=== PATIENT | male | born 1960 | race Caucasian/White ===

== ENCOUNTER 2017-03-06 14:59 | Inpatient (IN) ==
[2017-03-06 17:29] LABS: MANUAL DIFF NEEDED? NO
[2017-03-06 17:36] LABS: BASO% 0.3 % (0.0-0.8); EOS# 0.01 X1000 (0.0-0.7); EOS% 0.3 % (0.0-10.0); HEMATOCRIT 40.6 % (42.0-52.0); HEMOGLOBIN 13.7 g/dL (14.0-18.0); LYMPH# 0.55 X1000 (1.2-3.4); LYMPH% 16.6 % (20.5-51.1); MCHC 33.7 g/dL (33-37); MONO# 0.18 X1000 (0.11-0.59); MONO% 5.4 % (1.7-9.3); NEUT% 77.4 % (42.2-75.2); PLT 115 X1000 (130-400); RBC 4.56 XMIL (4.7-6.1)
[2017-03-06] MEDS: NS 1,000 ML IV SCH (17:49)
[2017-03-06] MEDS: NORCO-5 PO PRN (17:49)
[2017-03-06 17:52] LABS: ALBUMIN 3.5 g/dL (3.5-5.0); POTASSIUM 4.9 mmol/L (3.5-5.1); TOTAL BILIRUBIN 0.32 mg/dL (0.20-1.00); TOTAL PROTEIN 6.6 g/dL (6.3-8.3)
[2017-03-06] MEDS ORDERED: SODIUM CHLORIDE 0.9% INJ SCH (18:30)
[2017-03-06] MEDS: PROTONIX IV SCH (18:54)
[2017-03-06] MEDS: LOVENOX SUBQ SCH (18:54)
[2017-03-06] MEDS: ZYVOX 600 MG/D5W 600 MG/300 ML IVPB IV SCH (18:54)
[2017-03-06] MEDS: SOLU-MEDROL IV SCH (18:54)
[2017-03-07] MEDS: NORCO-5 PO PRN ×2 (00:27→06:29)
[2017-03-07 06:13] LABS: MANUAL DIFF NEEDED? NO
[2017-03-07 06:16] LABS: BASO% 0.4 % (0.0-0.8); EOS# 0.01 X1000 (0.0-0.7); EOS% 0.4 % (0.0-10.0); HEMATOCRIT 39.5 % (42.0-52.0); HEMOGLOBIN 13.4 g/dL (14.0-18.0); LYMPH# 0.82 X1000 (1.2-3.4); LYMPH% 34.9 % (20.5-51.1); MCHC 33.9 g/dL (33-37); MCV 88.4 FL (81-99); MONO# 0.19 X1000 (0.11-0.59); MONO% 8.1 % (1.7-9.3); MPV 10.4 FL (7.4-10.4); NEUT% 56.2 % (42.2-75.2); PLT 130 X1000 (130-400); RBC 4.47 XMIL (4.7-6.1)
[2017-03-07 06:21] LABS: INR 1.16; PROTIME 12.3 Seconds (9.2-11.7)
[2017-03-07] MEDS: SOLU-MEDROL IV SCH ×3 (06:30→17:42)
[2017-03-07] MEDS: NS 1,000 ML IV SCH ×2 (06:31→17:39)
[2017-03-07] MEDS: ZYVOX 600 MG/D5W 600 MG/300 ML IVPB IV SCH ×2 (06:31→17:42)
[2017-03-07 06:32] LABS: AGAP 13; BUN 19 mg/dL (8-22); CALCIUM 7.8 mg/dL (8.8-10.2); CHLORIDE 93 mmol/L (98-107); COSMO 255; MAGNESIUM 1.7 mg/dL (1.5-2.7); POTASSIUM 4.5 mmol/L (3.5-5.1); SODIUM 125 mmol/L (136-145); TCO2 19 mmol/L (25-35)
[2017-03-07 06:39] LABS: CK PROFILE 431 U/L (24-204)
[2017-03-07 07:07] LABS: CK INDEX 1.7 (0.0-2.5); CK-MB 7.27 ng/mL (0.0-5.0)
--- NOTE | 2017-03-07 07:22 | Diag Imaging Result Doc PS360 ---
EXAM: CHEST-2 VIEWS HISTORY: pneumonia COMPARISON: None. FINDINGS: The lungs are well expanded. The heart is not enlarged. The vessels are not distended. There are no infiltrates. No pleural effusions. IMPRESSION: No acute abnormality. Electronically signed by Hank Ryan 03/07/2017 7:19 AM
--- NOTE | 2017-03-07 08:25 | HISTORY AND PHYSICAL ---
CHIEF COMPLAINT: Diffuse rash, low blood pressure. Diffuse body pains. Low-grade fever. Cough. HISTORY OF PRESENT ILLNESS: He is a 56-year-old white male who was evaluated in my office a week ago for left olecranon bursitis with localized cellulitis. Wound cultures grew staph infection. He was sent home on Bactrim. In the meantime, he was seen in the walk-in Clinic on Saturday with fever, body pains. The blood workup revealed mild azotemia. He was advised to take a lot of water. He came back yesterday. He is feeling cough, low-grade fever and chest x-ray showed questionable infiltrate in the right lower lobe. He was advised to start on Levaquin. After taking Levaquin, he started having dizziness, rash, low blood pressure. In my office his blood pressure was 90/60, diffuse rash presumed to be reaction to the Levaquin or Bactrim. He has been admitted to the hospital for hyponatremia and dehydration, azotemia, allergic rash probable from the Levaquin and recent staph infection from the left elbow olecranon bursitis. He also has diffuse body pains. As a result, a hospital admission was warranted. PAST MEDICAL HISTORY: History of legionnaires disease in 2008. BPH with elevated PSA, olecranon bursitis, ischemic cardiomyopathy, right coronary artery 50-60% lesion, hyperlipidemia, unable to tolerate statins, nasal polyposis, deviated nasal septum. Fracture of the biceps tendon in the right side. History of DVT in the right leg while he was hospitalized for pneumonia in 2008. PAST SURGICAL HISTORY: Sinus surgery. MEDICATIONS: Coreg 3.125 p.o. b.i.d., Flomax 0.4 mg daily, terazosin discontinued. Recently he was given Bactrim, Levaquin, lisinopril 10 mg daily, diclofenac 50 mg p.o. t.i.d. ALLERGIES: Lipitor, metoprolol impotence, Hytrin chest pains. SOCIAL HISTORY: , 2 children. Devi. Lives in [place]. Smoking half a pack a day for last 20 years. No alcohol. FAMILY HISTORY: Father of abdominal aortic aneurysm at 88. Mom of stroke at 70. HEALTH MAINTENANCE: Flu vaccine in 2015, pneumococcal vaccine 2010, last prostate exam October 2016 as well as PSA. Colonoscopy refused. REVIEW OF SYSTEMS: HEENT: Slight dizziness. No headache. No vision problem. No earache. No sore throat. Neck: No goiter. No lymphadenopathy. No bruit. Cardiopulmonary: No chest pain, shortness of breath, PND, orthopnea or cough. Left elbow swelling resolving. GI: No nausea, vomiting, abdominal cramps, diarrhea. Extremities: No swelling of feet. Diffuse body pains. Integument: Diffuse rash all over the body, mostly on the face and back. Musculoskeletal: Chronic back pain. Neurologic: No focal symptoms or weakness. PHYSICAL EXAMINATION: VITAL SIGNS: Afebrile, blood pressure in my office was standing 70/42, on room air 100%. HEENT: Atraumatic, normocephalic. Pupils equal, reactive to light. TMs are normal. Nose and throat within normal limits. NECK: Supple. No lymphadenopathy. CHEST: Crackles in the right base. HEART: Sounds are regular. ABDOMEN: Belly is soft, nontender. Good bowel sounds. No masses palpable. No peripheral edema, cyanosis, clubbing. NEUROLOGIC: Nonfocal. SKIN: Has a diffuse rash consistent with allergic rash. INVESTIGATIONS: White cell count 3.2, hematocrit 40, platelets 115,000. Sodium 137, potassium 4.9, chloride 92, BUN 23, creatinine 1.4, potassium 8. AST ALT slightly high. ASSESSMENT AND PLAN: 1. A 56-year-old white gentleman, admitted to the hospital with a rash, hypotension after Levaquin, dehydration, azotemia, hyponatremia. Plan is IV fluids. Discontinue Bactrim and Levaquin. 2. Left olecranon bursitis. Staph aureus. Follow up on culture and sensitivity from [facility]. We will start on IV Zyvox. 3. Allergic rash. IV steroids. 4. Previous history of deep venous thrombosis. Continue on Lovenox. 5. Gastrointestinal prophylaxis with Protonix. 6. Diarrhea. Follow up on stool samples to rule out C. difficile colitis. Probiotics. 7. Diffuse body pains. We will also check the creatinine kinase and aldolase. 8. Coronary artery disease with right coronary artery lesion under the care of fire sprinkler fitter in [place] and currently on aspirin, Coreg and lisinopril. We will hold the blood pressure medications. 9. Elevated prostate-specific antigen. Follow up on PCA3 test is negative. He is going to repeat the prostate-specific antigen as well as 4K score tests in the next month. Discussed with the family and follow up. cc: Juan Mckeon MD
[2017-03-07] MEDS: NUBAIN IV PRN ×2 (10:45→17:43)
--- NOTE | 2017-03-07 12:01 | Diag Imaging Result Doc PS360 ---
MRI LUMBAR SPINE W/WO CONTRAST - 03/07/2017 INDICATION: Back pain COMPARISON: None FINDINGS: Alignment is anatomic. There is Modic type I degenerative marrow edema at L5-S1. There is also severe narrowing of this disc and vacuum disc phenomenon. The conus is seen at T12-L1 and appears normal. There are several chronic endplate herniations at the thoracic and upper lumbar spine. These appear degenerative. There is no abnormal contrast enhancement. Soft tissues are clear. At T12-L1 level is normal L1-L2 level is normal At L2-L3 level is normal L3-L4 there is a disc bulge and moderate facet hypertrophy. There is mild bilateral neural foraminal stenosis. At L4-L5 there is a disc bulge and significant facet hypertrophy. There is mild central canal stenosis and mild bilateral neural foraminal stenosis. At L5-S1 there is a large disc bulge and facet hypertrophy. There is moderate to severe bilateral neural foraminal stenosis. IMPRESSION: Lumbar spondylosis. Electronically signed by Alexi Neely 03/07/2017 11:59 AM
[2017-03-07] MEDS: LOVENOX SUBQ SCH (17:41)
[2017-03-07] MEDS: PROTONIX IV SCH (17:42)
--- NOTE | 2017-03-07 20:29 | PROGRESS NOTE ---
DATE: 03/07/2017 SUBJECTIVE: Complains of back pain, body pain and decreased fever. REVIEW OF SYSTEMS: HEENT: No headache. No vision problem. Neck: No goiter. No lymphadenopathy. Neck pain. Cardiopulmonary: Decreased cough. No chest pain or shortness of breath. Musculoskeletal: Left elbow swelling is slowly improving. Back pain. Both thighs with pain. Genitourinary: No dysuria. PHYSICAL EXAMINATION: Vital Signs: Stable. I's and O's positive for 80 mL. HEENT: Within normal limits. Neck: Supple. No lymphadenopathy. Skin: Rash is fading away. Heart: Auscultation is better. Heart sounds are regular. Abdomen: Belly is soft, nontender. Good bowel sounds. Musculoskeletal: Left elbow swelling is improving. Neurological : Nonfocal. INVESTIGATIONS: CBC: White cell count 2.3, hematocrit 39, platelets 130,000. PT 12, INR 1.1. SMA 7. Sodium 125, potassium 4.5, chloride 93, BUN 19, creatinine 1.1, glucose 124. CK 430. Index is negative. Troponin is negative. proBNP 269. ASSESSMENT AND PLAN: 1. Left elbow olecranon bursitis with Staphylococcus. Continue IV Zyvox. 2. Chronic obstructive pulmonary disease with questionable pneumonia improving. 3. Dehydration. IV fluids. Hold the blood pressure medicine. Allergic reaction to Levaquin, IV prednisone. 4. Chronic back pain going into sciatica. L-spine showed degenerative joint disease changes. We will follow up on MRI of lumbar spine. 5. Diarrhea. We will follow up on stool samples. 6. History of Legionnaires' disease. Follow up on urine for Legionella antigen. 7. DVT and GI prophylaxis. I discussed with the family. LEVEL OF DOCUMENTATION: 35 minutes. cc: Juan Mckeon MD MTDD
[2017-03-08] MEDS: NS 1,000 ML IV SCH ×3 (00:27→08:13)
[2017-03-08] MEDS: SOLU-MEDROL IV SCH ×2 (02:45→10:32)
[2017-03-08 05:47] LABS: MANUAL DIFF NEEDED? NO
[2017-03-08 05:54] LABS: BASO% 0.3 % (0.0-0.8); HEMATOCRIT 39.3 % (42.0-52.0); HEMOGLOBIN 13.2 g/dL (14.0-18.0); IMM GRAN# 0.02 X1000 (0.0-0.04); IMM GRAN% 0.3 % (0.0-0.5); LYMPH# 1.58 X1000 (1.2-3.4); LYMPH% 25.9 % (20.5-51.1); MCH 30.1 PG (27-31); MCHC 33.6 g/dL (33-37); MCV 89.7 FL (81-99); MONO% 6.6 % (1.7-9.3); MPV 10.3 FL (7.4-10.4); NEUT% 66.9 % (42.2-75.2); PLT 143 X1000 (130-400); RBC 4.38 XMIL (4.7-6.1)
[2017-03-08 05:56] LABS: INR 1.07; PROTIME 11.3 Seconds (9.2-11.7)
[2017-03-08] MEDS: ZYVOX 600 MG/D5W 600 MG/300 ML IVPB IV SCH (06:13)
[2017-03-08 06:14] LABS: AGAP 14; BUN 23 mg/dL (8-22); CALCIUM 7.8 mg/dL (8.8-10.2); CHLORIDE 99 mmol/L (98-107); COSMO 271; POTASSIUM 4.9 mmol/L (3.5-5.1); SODIUM 133 mmol/L (136-145); TCO2 20 mmol/L (25-35)
[2017-03-08] MEDS ORDERED: PREVNAR 13 IM ONE (08:43)
[2017-03-08 09:18] VITALS: BP 122/81
--- NOTE | 2017-03-09 18:56 | DISCHARGE SUMMARY ---
ADMISSION DATE: 03/06/2017 DISCHARGE DATE: 03/08/2017 DISCHARGING DIAGNOSIS: 1. Allergic rash due to Levaquin. 2. Dehydration with hyponatremia, azotemia due to hypotension. 3. Resolving right lower lobe pneumonia. 4. Left elbow olecranon bursitis with a staphylococcal aureus infection. 5. Benign prostatic hypertrophy with elevated PSA, normal CLINICAL TEAM MANAGER 3 test. 6. Ischemic cardiomyopathy right carotid artery 50-60%. 7. Chronic back pain due to lumbar spondylosis with diffuse bulging disks. 8. Hyperlipidemia, unable to tolerate statins. 9. Deviated nasal septum. 10. History of partial rupture of biceps tendon on the right side. BRIEF HISTORY: Please see the H and P that was done on 03/06/2017. In brief he is a 56-year-old white gentleman admitted to the hospital from my office after he developed the rash taking Levaquin for recently infection of the left olecranon bursitis. He is also associated with low blood pressure, azotemia, hyponatremia. HOSPITAL COURSE: Patient was given IV fluids and stop all the blood pressure medicine. He was given IV steroids. He had a history of Legionella disease and urine Legionella antigen was negative. Followup chest x-ray is improving. Left olecranon area elbow is much improved. He was given IV Zyvox, IV steroids. He was complaining of back pain and muscle cramps. MRI was done and findings were discussed. At the time of discharge patient was stable. LABORATORIES: CBC. White cell count 6.1, hematocrit 39, platelets 143,000, PT 11, INR 1.0. SMA 7, sodium 133, potassium 4.9, chloride 99, CO2 20, BUN 23, creatinine 1.1, glucose 123. CK index, troponin were negative. ProBNP is normal. TSH is normal. Urine Legionella antigen was negative. MRI of the brain. There is a bulging disk L3-L4, L4-L5 and L5-S1 which was large with facet hypertrophy and bilateral severe neural foraminal stenosis mostly L5-S1 and hemodynamics were stable. DISCHARGE INSTRUCTIONS: Patient was given a pneumococcal vaccine 03/08/2017. Continue Bactrim 1 tablet p.o. b.i.d., Medrol Dosepak, Flexeril 10 mg p.o. b.i.d., Coreg 3.125 p.o. b.i.d., Ultracet 1 tablet q.6 for pain. Will resume the medicines for his BPH, Flomax 0.4 daily, lisinopril 10 daily next week and follow up in my office next week for PSA. cc: Juan Mckeon MD
== END 2017-03-08 13:23 | disposition home or self-care (01) ==
LOC: DIRADM 14:59 → 3N 16:00
PROVIDERS: ADMIT Internal Medicine; ATTEND Internal Medicine